=== PATIENT | female | born 1980 | race Caucasian/White ===

== ENCOUNTER 2017-07-26 23:14 | Emergency (ER) | payer MEDICAID ==
[~2017-07-26] VITALS: Ht 170.2 cm; Wt 68.0 kg
[2017-07-26 23:16] VITALS: BP_SYST 164
[2017-07-27 00:25] VITALS: BP_SYST 154
== END 2017-07-27 00:25 | disposition home or self-care (01) ==
LOC: SED 23:14
DX: T17.1XXA Foreign body in nostril, initial encounter (principal); Z98.51 Tubal ligation status; X58.XXXA Exposure to other specified factors, initial encounter; Y93.89 Activity, other specified; Y92.89 Other specified places as the place of occurrence of the external cause; Y99.8 Other external cause status
CPT/HCPCS: 99281